=== PATIENT | male | born 1980 | race Caucasian/White ===

== ENCOUNTER 2021-07-01 13:45 | Emergency (ER) | payer SELFPAY ==
[~2021-07-01] VITALS: Ht 177.8 cm; Wt 90.7 kg
[2021-07-01] MEDS ORDERED: SODIUM CHLORIDE 0.9% 1,000 ML IV ONE ×2 (14:15→15:15)
[2021-07-01 14:20] LABS: Urine Bacteria NONE SEEN /hpf (None Seen); Urine Blood Negative /uL (Negative); Urine Specific Gravity 1.004 (1.001-1.035); Urine WBC <1 /hpf (0 - 3)
[2021-07-01 14:28] LABS: Basophils # (auto) 0.1 10 ^3/uL (0-0.2); Basophils % (auto) 0.9 % (0.0-2.0); Eosinophils # (auto) 0.1 10 ^3/uL (0-0.8); Eosinophils % (auto) 0.9 % (0.0-7.0); Hematocrit 46.1 % (41.0-53.0); Hemoglobin 15.6 g/dL (13.5-17.5); Lymphocytes # (auto) 1.4 10 ^3/uL (0.4-5.4); Lymphocytes % (auto) 17.9 % (10.0-50.0); Mean Corpuscular Hemoglobin 31.4 pg (28.0-32.0); Mean Corpuscular Hgb Conc. 33.8 g/dL (32.0-36.0); Mean Corpuscular Volume 92.9 fL (80.0-100.0); Monocytes # (auto) 0.6 10 ^3/uL (0-1.3); Monocytes % (auto) 7.7 % (0.0-12.0); Neutrophils # (auto) 5.6 10 ^3/uL (1.6-8.6); Neutrophils % (auto) 72.6 % (37.0-80.0); Red Blood Cells 4.96 10^6/uL (4.5-5.90); Red Cell Distribution Width 12.4 % (11.8-14.3); White Blood Cell 7.7 10^3/uL (4.4-10.8)
[2021-07-01 14:43] LABS: Blood Alcohol < 3.0 mg/dL (0-5); Lipase 108 U/L (73-393); Magnesium 2.2 mg/dL (1.6-2.6)
[2021-07-01 14:48] LABS: INR 0.97 (0.9-1.15); Partial Thromboplastin Time 24.4 sec (23.6-33.0)
[2021-07-01 15:02] LABS: Albumin 3.9 g/dL (3.4-5.0); Calcium 8.9 mg/dL (8.5-10.1); Potassium 4.4 mmol/L (3.5-5.1)
[2021-07-01 15:05] LABS: BUN/Creatinine Ratio 14.3; Bilirubin, Total 0.5 mg/dL (0.2-1.0); Total Protein 7.6 g/dL (6.4-8.2)
[2021-07-01 15:10] VITALS: BP 147/94
[2021-07-01] MEDS ORDERED: cefTRIAXone 1GM/50ML D5W 50 ML IV ONE (15:30)
[2021-07-01] MEDS ORDERED: methylPREDNISolone SOD SUCC 125 MG/2 ML VL IV ONE (15:30)
== END 2021-07-01 16:18 | disposition home or self-care (01) ==
LOC: ER 13:45
DX: J01.90 Acute sinusitis, unspecified (principal); H66.92 Otitis media, unspecified, left ear; R51.9 Headache, unspecified; F17.210 Nicotine dependence, cigarettes, uncomplicated
CPT/HCPCS: 36415; 70450; 80053; 80320; 81001; 82140; 83690; 83735; 85025; 85610; 85730; 96361; 96365; 96375; 99284; J0696; J2930; J7030